=== PATIENT | male | born 1980 | race African-American/Black ===

== ENCOUNTER → 2018-05-31 | Day surgery (SDC) | payer SELFPAY ==
[~2018-05-31] MED LIST: Bupivacaine/Epinephrine 0.25% 30 ML VIAL ONE; Dexamethasone 20 MG/5 ML VIAL ONE; Fentanyl 100 MCG/2 ML VIAL ONE; Glycopyrrolate 0.2 MG/ML 5 ML SYRINGE ONE; Iopamidol 370 76% 100 ML VIAL ONE; Lidocaine 2% PF 5 ML VIAL ONE; Metoclopramide HCl 10 MG/2 ML VIAL ONE; Ondansetron PF 4 MG/2 ML Vial ONE; PROPOFOL 200 MG/20 ML VIAL ONE; Rocuronium Bromide 10 MG/ML (10ML VIAL) ONE; Succinylcholine Chloride 20 MG/ML 10 ml SYRINGE FS ONE
[2018-05-31 09:30] LABS: #Basophils 0.1 thou/uL (0.0-0.2); #Eosinphils 0.3 thou/uL (0.0-0.7); #Lymphocytes 1.5 thou/uL (1.20-3.40); #Monocytes 0.4 thou/uL (0.11-0.59); #Neutrophils 2.1 thou/uL (1.40-6.50); %Basophils 1.3 % (0.0-1.0); %Lymphocytes 33.6 % (21.0-51.0); %Neutrophils 49.1 % (42.0-75.0); Hemoglobin 15.9 g/dL (14.0-18.0); Mean Corpuscular HGB CONC 32.8 g/dL (32.0-36.0); Mean Corpuscular Hemoglobin 30.6 pg (27.0-31.0); Mean Corpuscular Volume 93.1 fL (78.0-98.0); Platelet Count 129 thou/uL (130-400); RBC Distribution Width 11.9 % (11.5-14.5); White Blood Cell (WBC) Count 4.4 thou/uL (4.8-10.8)
[2018-05-31 09:56] LABS: ALT (SGPT) 19 U/L (8-55); AST (SGOT) 19 U/L (5-34); Albumin 4.3 g/dL (3.5-5.0); Alkaline Phosphatase 55 U/L (40-150); Anion Gap 12 mmol/L (10-20); BUN (Urea Nitrogen) 8 mg/dL (8.9-20.6); Bilirubin, Total 0.4 mg/dL (0.2-1.2); Calc. Creatinine Clearance 0 mL/min (70-130); Calcium 9.5 mg/dL (7.8-10.44); Carbon Dioxide 29 mmol/L (22-29); Chloride 104 mmol/L (98-107); Estimated GFR-MDRD 85; Globulin 2.8 g/dL (2.4-3.5); Glucose 125 mg/dL (70-105); Lipase 123 U/L (8-78); Potassium 3.5 mmol/L (3.5-5.1); Protein, Total 7.1 g/dL (6.0-8.3); Sodium 141 mmol/L (136-145)
[2018-05-31 10:06] LABS: Bilirubin Negative (Negative); Blood, Urine Negative (Negative); Clarity CLEAR (Clear); Glucose, Urine (Dipstick) Negative (Negative); Leukocyte Small (Negative); Nitrite Negative (Negative); Protein, Urine (Dipstick) Negative (Neg-Trace); pH, Urine 6.5 (5.0-9.0)
[2018-05-31 10:09] LABS: Bacteria/HPF None Seen HPF (None Seen); Hyaline Casts/LPF 7-10 HYALINE CAST LPF (0-3 Hyaline); Pathc Cast-AUWi Flag 0.54 (0-2.49); RBC/HPF 0-3 HPF (0-3); Squamous Epithelial 0-3 HPF (0-3)
--- NOTE | 2018-05-31 11:04 | CT ---
CT ABDOMEN AND PELVIS WITH IV CONTRAST: DATE: 05/31/2018. PROVIDED CLINICAL HISTORY: Left lower quadrant pain. FINDINGS: The visualized lung bases are free of significant opacity. The liver, spleen, pancreas, kidneys, and adrenal glands demonstrate an unremarkable CT appearance. There is a large left inguinal hernia present containing a moderate amount of descending and sigmoid colon as well as peritoneal fat. There is stranding of the fat and fluid present within the hernia s ac. There is no evidence for resultant bowel obstruction. There is no intraperitoneal fat stranding, free air, or intraperitoneal fluid present. The regional major vascular structures appear unremarkable. The osseous structures demonstrate no concerning lytic or blastic lesions. Multiple bone islands are noted. IMPRESSION: Colon containing large left inguinal hernia with findings suggesting the possibility of strangulation . POS: [facility]NER
--- NOTE | 2018-05-31 11:24 | HP ---
CHIEF COMPLAINT: Left inguinal hernia. HISTORY OF PRESENT ILLNESS: This is a 37-year-old male with a history of a chronic left-sided groin mass. Previously told it was a hernia and he needed outpatient repair. A few days ago, he noticed he felt what he thought was a pop and the hernia got larger, had progressive pain since then. No nausea, vomiting, seen in the emergency department. CT scan shows colon in the hernia. PAST MEDICAL HISTORY: Denies. PAST SURGICAL HISTORY: Denies. MEDICATIONS TAKEN DAILY: None. ALLERGIES: NO KNOWN DRUG ALLERGIES. SOCIAL HISTORY: No smoking, alcohol or other drugs. REVIEW OF SYSTEMS: Ten-system review of systems otherwise negative unless described above. PHYSICAL EXAMINATION: HEENT: Sclerae anicteric, oropharynx clear. NECK: No lymphadenopathy. CHEST: Clear. HEART: Regular rate and rhythm. ABDOMEN: Soft, minimally distended, very tender in the left groin and in the left scrotum. IMAGING: CT scan shows colon and inflammatory change of fat in left inguinal hernia. ASSESSMENT: Incarcerated left inguinal hernia. PLAN: Emergent left inguinal hernia repair with mesh. Risks, benefits, and alternatives were discussed, he gives consent. We will do this today. Job ID: [id number]
--- NOTE | 2018-05-31 16:42 | OP ---
DATE OF PROCEDURE: 05/31/2018 PREOPERATIVE DIAGNOSIS: Incarcerated left inguinal hernia. POSTOPERATIVE DIAGNOSIS: Incarcerated left inguinal hernia. PROCEDURE PERFORMED: Incarcerated strangulated left inguinal hernia repair with mesh, PHS extended. ANESTHESIA: General. ESTIMATED BLOOD LOSS: 200 mL. COMPLICATIONS: None. FINDINGS: Sigmoid colon and most of the omentum in the hernia sac. Significant large blood vessels in both the hernia sac and the omentum causing more than the usual bleeding. DESCRIPTION OF PROCEDURE: The patient was taken to the operating room and laid supine on the operating room table. After general anesthetic was obtained, the abdomen was shaved, prepped, and draped in a sterile fashion. The scrotum and an external genitalia were all prepped as well. Oblique incision was made above the pubic tubercle. Cautery was used to dissect down through Goldie's to expose the external oblique. External oblique fibers opened along the course of the external ring. Contents of inguinal canal were dissected from backside. The external oblique cord structures are mobilized on the pubic tube using a [place] drain. There was a super large in hernia sac that was indirect. It had to be opened distally in order to reduce the large amount of omentum and the sigmoid colon of the scrotum. This was very difficult to reduce back into the internal ring. The internal ring had to be enlarged slightly. The omentum was not able to be reduced. It was taken out using Impact LigaSure. Several large blood vessels and adhesions within the hernia sac were taken down using the Impact LigaSure. Finally, the colon and residual omentum was able to be reduced. A high ligation of the indirect hernia sac was performed using a 2-0 silk suture. The indirect hernia sac done back into the preperitoneal space. PHS extended mesh brought into the sterile field. The underlay was placed in the preperitoneal space, its fibers laid out flat against the posterior abdominal wall. The overlay was laid in the inguinal floor. The overlay was sewn distally to the pubic tubercle medially to the transverse arch, laterally to the shelving edge of the inguinal ligament using permanent braided suture. The two ends of the cut mesh at the internal ring are wrapped around the internal ring structures and reapproximated at the shelving edge of inguinal ligament to reform the internal ring. The wound was irrigated. Local anesthetic was applied. 3-0 Vicryl was used to close both the external oblique and the Goldie's layers. The skin was closed using running 4-0 Monocryl and Dermabond. The patient was sent to Recovery in stable condition. All instrument counts, needle counts, and lap counts were correct. Job ID: [id number]
== END ==
LOC: ERS 08:53 → EEVIPCON 08:53 → ERS 11:24
PROVIDERS: ATTEND Surgery
PROC: 0YU60JZ Supplement Left Inguinal Region with Synthetic Substitute, Open Approach (ICD-10-PCS; principal; 2018-05-31)
DX: K40.30 Unilateral inguinal hernia, with obstruction, without gangrene, not specified as recurrent (principal); F17.210 Nicotine dependence, cigarettes, uncomplicated
CPT/HCPCS: 36415; 74177; 80053; 81003; 81015; 83605; 83690; 85025; 86850; 86900; 86901; C1781; J1100; J2001; J2405; J2704; J2765; J3010; Q9967